=== PATIENT | male | born 1970 | race Caucasian/White ===

== ENCOUNTER 2021-12-16 08:55 | Outpatient (RCR) | payer BC | END 2021-12-28 | disposition home or self-care (01) | LOC: PT | DX: M54.50 Low back pain, unspecified (principal) ==

== ENCOUNTER 2021-12-29 15:00 | Outpatient (RCR) | payer BC | END 2022-01-25 | disposition still patient (30) | LOC: PT | DX: M54.50 Low back pain, unspecified (principal) ==